=== PATIENT | female | born 1955 | race Caucasian/White ===

== ENCOUNTER 2019-06-30 10:49 | Emergency (ER) | payer MEDICARE, BC ==
--- NOTE | 2019-06-30 10:55 | EDM.PDOC ---
ED HPI GENERAL MEDICAL PROBLEM - General Chief Complaint: General Stated Complaint: Confusion Time Seen by Provider: 06/30/19 10:49 Source of Information: Reports: Patient, Family (Sister), Old Records ([facility] chart/EMR), Other ([facility], friend) History Limitations: Reports: Altered Mental Status - History of Present Illness INITIAL COMMENTS - FREE TEXT/NARRATIVE: The patient was brought to the emergency room via private automobile by her sister for evaluation of sudden onset nonspecific confusion with repetitive speaking but no dysarthria with symptoms starting about 08:45 hours this morning and 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 She also did have some nonspecific 2/10 retrosternal chest tightness at about 04:00 hours with questionable borderline heart flutter brief in nature with patient admitting that she is under significant stress at work at this time. The patient denies any dizziness, orthostasis, orthopnea, diaphoresis, paresthesias, recent decreased exercise tolerance, or any other anginal-type symptoms. No recent history of abdominal pain, heartburn, nausea, diarrhea, melena, gross hematochezia, or any food intolerance, including fatty foods, etc.. She denies any gross hematuria, colic, or other UTI symptoms. The patient also denies any recent fever, cough, wheezing, dyspnea, etc.. No history of recent headaches, visual changes, diplopia, change in mental status, or other change in neurological status. She denies any specific pain or discomfort at this time. Onset: Today, Sudden, Unknown/Unsure Onset Date: 06/30/19 Onset Time: 08:45 Duration: Improving Location: Reports: Other (No pain) Severity: Moderate (Confusion) Improves with: Reports: None Worsens with: Reports: None Context: Reports: Other (As above). Denies: Sick Contact, Trauma Associated Symptoms: Reports: Confusion, Chest Pain. 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 Denies: Allergic Rhinitis, Glaucoma, Hard of Hearing, Macular Degeneration, Retinal Detachment, Sinusitis Other HEENT History: Patient does need reading glasses after cataract surgery as below. Cardiovascular History: Reports: Arrhythmia, High Cholesterol, Other (See Below) . Denies: Afib, Aneurysm, Blood Clots/VTE/DVT, CAD, Heart Murmur, Hypertension , IL, PVD, Syncope Other Cardiovascular History: Hyperlipidemia currently diet controlled. History of hypertension. Varicose veins. Complete right bundle branch block. Respiratory History: Reports: Intubation, Previous, Other (See Below). Denies: Asthma, Bronchitis, Recurrent, COPD, Intubation, Difficult, PE, Pneumonia, Recurrent, Pneumothorax, Sleep Apnea, TB Other Respiratory History: Occasional pleurisy. Gastrointestinal History: Reports: Colon Polyp, GERD, Other (See Below). Denies : Bowel Obstruction, Celiac Disease, Cholelithiasis, Chronic Constipation, Chronic Diarrhea, Fecal Incontinence, GI Bleed, Inflammatory Bowel Disease, Irritable Bowel Syndrome, Jaundice, PUD Other Gastrointestinal History: Excision of tubular adenoma from the cecum and hyperplastic colonic polyp from the ascending colon on 01/15/17 by colonoscopy as below. Recurrent colonic polyps with previous history of CEA elevation. Benign hepatic cysts by CT scan. Genitourinary History: Reports: Chronic Renal Insuffiency, Urinary Incontinence , Other (See Below). 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 Urosepsis secondary to pyelonephritis. COMPUTATOR History: Reports: Dysfunctional Uterine Bleeding, Polycystic Ovaries, , Spontaneous . Denies: Endometriosis, Fibroids, Therapeutic : 3 LMP (Approximate): Other (See Below) Other COMPUTATOR History: Surgical menopause secondary to dysfunctional uterine bleeding as below multiple previous abnormal Pap smears without carcinoma or required procedures. SAB during first trimester with no D&C required. Hyperemesis gravidarum otherwise, Full term without complications during pregnancies or deliveries. Musculoskeletal History: Reports: Arthritis, Back Pain, Chronic, Neck Pain, Chronic, Osteoarthritis, Osteoporosis, Other (See Below). Denies: Amputation, Fracture, Gout, RA, SLE Other Musculoskeletal History: Mild kyphoscoliosis. Neurological History: Reports: None. Denies: Cerebral Aneurysms, Concussion, Headaches, Chronic, Head Trauma, Migraines, MS, Neuropathy, Peripheral, Parkinson's, Seizure, TIA, Vertigo Psychiatric History: Reports: Anxiety, Depression. Denies: Abuse, Victim of, ADD, ADHD, Addiction, Psych Hospitalization(s), PTSD, Suicide Attempt, Suicidal Ideation Endocrine/Metabolic History: Reports: Osteopenia, Osteoporosis. Denies: Diabetes, Gestational, Diabetes, Type I, Diabetes, Type II, Diabetes Mellitus, Type 3c, Hypothyroidism, IDDM, Obesity/BMI 30+ Hematologic History: Reports: Anemia, Iron Deficiency, Other (See Below). Denies: Blood Transfusion(s) Other Hematologic History: Iron deficiency anemia secondary to dysfunctional uterine bleeding resolved at this time. Immunologic History: Reports: None. Denies: AIDS, HIV, SLE Oncologic (Cancer) History: Reports: Cervix, Other (See Below). Denies: Basal Cell Carcinoma, Breast, Hodgkin's Lymphoma, Leukemia, Lymphoma, Malignant Melanoma, Non-Hodgkin's Lymphoma, Ovarian, Squamous Cell Carcinoma, Uterine Other Oncologic History: Multiple abnormal Pap smears as above however not precancerous Dermatologic History: Reports: None. Denies: Eczema, Psoriasis - Infectious Disease History Infectious Disease History: Reports: Chicken Pox, Measles, Mumps. Denies: C- Difficile, Meningitis, Mononucleosis, MRSA, Pertussis (Whooping Cough), Rheumatic Fever, Rubella, Scarlet Fever, Shingles, TB, VRE - Past Surgical History Head Surgeries/Procedures: Reports: None HEENT Surgical History: Reports: Adenoidectomy, Cataract Surgery, Naso-Sinus Surgery, Oral Surgery, Tonsillectomy, Other (See Below). Denies: Eye Surgery, Laser Surgery, LASIK, Myringotomy w Tube(s) Other HEENT Surgeries/Procedures: Tonsillectomy and adenoidectomy at about age 8. Nasal septum repair on 02/17/18. [place] teeth extraction 4 as a teenager. Bilateral cataract extraction in April and May 2019. Cardiovascular Surgical History: Reports: None. Denies: Varicose Respiratory Surgical History: Reports: None. Denies: Thoracentesis GI Surgical History: Reports: Colonoscopy, EGD, Polypectomy, Other (See Below). Denies: Appendectomy, Cholecystectomy, Hernia, Abdominal, Hernia, Inguinal, Hernia Repair/Other Other GI Surgeries/Procedures: EGD and colonoscopy on 01/15/17 with polypectomies as above. Previous colonoscopy in April 2011. Female Surgical History: Reports: Hysterectomy, Nephrectomy, Other (See Below ). 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 Partial hysterectomy in December 2009 secondary to dysfunctional uterine bleeding as above. Bladder suspension on 09/01/12 with subsequent mesh removal on 09/18/12. Endocrine Surgical History: Reports: None. Denies: Thyroid Biopsy Neurological Surgical History: Reports: None. Denies: C-Spine, Discectomy, Laminectomy, Lumbar Spine, Sacral Spine, Spinal Fusion, Thoracic Spine, Vertebroplasty Musculoskeletal Surgical History: Reports: None. Denies: Arthroscopic Procedure , Carpal Tunnel, Ganglion Cyst, Joint Replacement, ORIF, Shoulder Surgery Oncologic Surgical History: Reports: None Dermatological Surgical History: Reports: Other (See Below) Other Dermatological Surgeries/Procedures: Multiple benign skin lesion excisions. - Past Imaging History Past Imaging History: Reports: DEXA Scan (10/17/17.), Mammogram (Last mammogram on 03/30/19.), Stress Testing (Negative Cardiolite stress test on 07/11/03.), Ultrasound (Abdominal ultrasound on 05/11/16. Pelvic ultrasound on 01/03/09.) Social & Family History - Tobacco Use Smoking Status *Q: Never Smoker Tobacco Use Within Last Twelve Months: No Used Tobacco, but Quit: No Smoking Cessation Information Provided To Patient: No Second Hand Smoke Exposure: No Second Hand Smoke Education Provided: No - Caffeine Use Caffeine Use: Reports: Coffee (3 cups per day), Soda (With mixed drinks), Tea ( 2 glasses per week.). Denies: Energy Drinks - Alcohol Use Alcohol Use History: Yes Days Per Week of Alcohol Use: 1 Number of Drinks Per Day: 1 Number of Drinks Per Day Comment: Usually beer or mixed drink. No previous DWIs , problems with alcohol abuse, etc. 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 ED EXAM, GENERAL - Physical Exam Exam: See Below Exam Limited By: No Limitations General Appearance: Alert, WD/WN, No Apparent Distress, Anxious (Moderate) Eye Exam: Bilateral Eye: EOMI, Normal Fundi, Normal Inspection (No nystagmus), PERRL Ears: Normal External Exam, Normal Canal, Hearing Grossly Normal, Normal TMs Nose: Normal Inspection, Normal Mucosa, No Blood Throat/Mouth: Normal Inspection, Normal Lips, Normal Teeth, Normal Gums, Normal Oropharynx, Normal Voice, No Airway Compromise. No: Dysphagia, Perioral Cyanosis Head: Atraumatic, Normocephalic. No: Facial Swelling, Facial Tenderness, Sinus Tenderness Neck: Normal Inspection, Supple, Non-Tender, Full Range of Motion. No: Carotid Bruit, Lymphadenopathy (L), Lymphadenopathy (R), Thyromegaly Respiratory/Chest: No Respiratory Distress, Lungs Clear, Normal Breath Sounds, No Accessory Muscle Use, Chest Non-Tender. No: Pleural Rub, Retractions Cardiovascular: Normal Peripheral Pulses, Regular Rate, Rhythm, No Edema, No Gallop, No JVD, No Murmur, No Rub. No: Gallop/S3, Gallop/S4, Friction Rub Peripheral Pulses: 2+: Radial (L), Radial (R), Dorsalis Pedis (L), Dorsalis Pedis (R) GI/Abdominal: Normal Bowel Sounds, Soft, Non-Tender, No Organomegaly, No Distention, No Abnormal Bruit, No Mass, Pelvis Stable. No: Guarding (Female) Exam: Deferred Rectal (Female) Exam: Deferred Back Exam: Full Range of Motion, Other (Mild kyphoscoliosis). No: CVA Tenderness (L), CVA Tenderness (R), Muscle Spasm, Paraspinal Tenderness, Vertebral Tenderness Extremities: Normal Inspection, Normal Range of Motion, Non-Tender, No Pedal Edema, Normal Capillary Refill. No: Arsen's Sign Neurological: Alert, Oriented, CN II-XII Intact, Normal Cognition, Normal Gait, Normal Reflexes (Negative Babinski's, finger to nose, and pronator rotation tests. No evidence of facial paresis, tongue deviation, orthostasis, etc.. Excellent reverse thought processes.), No Motor/Sensory Deficits, Other (Some logorhrea with persistent term memory loss and forgetfulness with repetitive sentences and questions with no dysarthria, word substitution, etc.) Psychiatric: Anxious (Moderate), Depressed Mood (Borderline) Skin Exam: Warm, Dry, Intact, Normal Color, No Rash. No: Diaphoretic, Ecchymosis, Wound/Incision Lymphatic: No Adenopathy EKG INTERPRETATION EKG Date: 06/30/19 Time: 11:17 Rhythm: NSR Rate (Beats/Min): 88 [place]: Normal (Neutral cardiac axis) P-Wave: Enlarged (Moderate diffuse biphasic P waves) QRS: RBBB (There are 0.12 seconds representing a complete right bundle branch block with stable T-wave inversion in leads V1 and V2.) ST-T: Other (As above) QT: Normal SD/PQ Interval: 0.16 seconds with no delta waves noted. Poor R-wave progression in the anterior leads Comparison: No Change (Last EKG at time of Cardiolite stress test on 07/11/03) EKG Interpretation Comments: 1. Questionable anterior wall cardiac ischemia 2. Complete right bundle branch block 3. Left atrial enlargement Course - Vital Signs Last Recorded V/S: Last Vital Signs Temp 36.8 C 06/30/19 10:55 Pulse 81 06/30/19 12:15 Resp 16 06/30/19 12:15 BP 146/84 H 06/30/19 12:15 Pulse Ox 100 06/30/19 12:15 Vital Signs - 24 hr 06/30/19 06/30/19 06/30/19 10:55 11:10 11:25 Temperature [ 36.8 C Temporal] Pulse, 94 84 79 Peripheral [ Pulse Oximetry] Respiratory 18 19 18 Rate Blood Pressure 165/75 H 136/73 155/75 H [Left Upper Arm ] O2 Sat by Pulse 96 98 98 Oximetry 06/30/19 06/30/19 06/30/19 11:43 12:00 12:15 Temperature [ Temporal] Pulse, 85 72 81 Peripheral [ Pulse Oximetry] Respiratory 19 15 16 Rate Blood Pressure 147/70 H 131/65 146/64 H [Left Upper Arm ] O2 Sat by Pulse 100 96 100 Oximetry - Orders/Labs/Meds Orders: Active Orders 24 hr Category Date Time Status Blood Glucose Check, Bedside [RC] STAT Care 06/30/19 10:56 Active Cardiac Monitoring [RC] STAT Care 06/30/19 10:56 Active EKG Documentation Completion [RC] ASDIRECTED Care 06/30/19 10:56 Active NIH Stroke Scale [RC] ASDIRECTED Care 06/30/19 10:56 Active Oxygen Therapy, ED [RC] CONTINUOUS Care 06/30/19 10:56 Active Peripheral IV Care [RC] . DIRECTED Care 06/30/19 10:56 Active Pulse Oximetry [RC] CONTINUOUS Care 06/30/19 10:56 Active Up With Assistance [RC] ASDIRECTED Care 06/30/19 10:56 Active Vital Signs [RC] PFP Care 06/30/19 10:56 Active Nothing per Oral Now Diet [DIET] Diet 06/30/19 Breakfast Active Chest 1V Frontal [CR] Stat Exams 06/30/19 10:56 Taken Head wo Cont [CT] Stat Exams 06/30/19 10:56 Taken PROLACTIN [REF] Stat Lab 06/30/19 10:58 Received Sodium Chloride 0.9% [Saline Flush] Med 06/30/19 10:56 Active 10 ml FLUSH ASDIRECTED PRN Obtain Past Medical Record [OM.PC] Stat Oth 06/30/19 10:56 Active Peripheral IV Insertion Adult [OM.PC] Stat Oth 06/30/19 10:56 Ordered Resuscitation Status Stat Resus Stat 06/30/19 10:56 Ordered Medication Orders Sodium Chloride (Saline Flush) 10 ml FLUSH ASDIRECTED PRN PRN Reason: Keep Vein Open Labs: Laboratory Tests 06/30/19 06/30/19 06/30/19 Range/Units 10:56 10:56 10:58 WBC 6.4 (4.0-10.2) K/uL RBC 5.16 H (3.77-5.09) M/uL Hgb 15.1 (11.7-15.5) g/dL Hct 45.4 (34.0-46.0) % MCV 88.0 (84.0-98.0) fL MCH 29.3 (28.2-33.3) pg MCHC 33.3 (31.7-36.0) g/dL RDW 12.9 (11.2-14.1) % Plt Count 267 (150-350) K/uL Neut % (Auto) 70.1 (45.0-80.0) % Lymph % (Auto) 19.7 (10.0-50.0) % [place] % (Auto) 9.0 (2.0-14.0) % Eos % (Auto) 0.9 (0.0-5.0) % Baso % (Auto) 0.3 (0.0-2.0) % Neut # (Auto) 4.51 (1.40-7.00) K/uL Lymph # (Auto) 1.27 (0.50-3.50) K/uL [place] # (Auto) 0.58 (0.00-1.00) K/uL Eos # (Auto) 0.06 (0.00-0.50) K/uL Baso # (Auto) 0.02 (0.00-0.20) K/uL PT 12.9 H (9.5-12.0) SEC INR 1.2 APTT 25.7 (21.0-31.3) SEC D-Dimer, Quantitative 219 (0-400) ng/mL Sodium (136-145) mmol/L Potassium (3.5-5.1) mmol/L Chloride (98-107) mmol/L Carbon Dioxide (21.0-32.0) mmol/L BUN (7-18) mg/dL Creatinine (0.51-1.17) mg/dL Est Cr Clr Drug Dosing mL/min Estimated GFR (MDRD) mL/min Glucose (74-106) mg/dL Lactic Acid (0.4-2.0) mmol/L Uric Acid (2.6-7.2) mg/dL Calcium (8.5-10.1) mg/dL Magnesium (1.8-2.4) mg/dL Total Bilirubin (0.2-1.0) mg/dL AST (15-37) U/L ALT (12-78) U/L Alkaline Phosphatase (46-116) IU/L Creatine Kinase (26-308) U/L Creatine Kinase Index (0.0-2.5) % CK-MB (CK-2) (0.00-3.60) ng/mL Troponin I (0.000-0.056) ng/mL NT-Pro-B Natriuret Pep (0-125) pg/mL Total Protein (6.4-8.2) g/dL Albumin (3.4-5.0) g/dL TSH, Ultra Sensitive (0.358-3.740) mIU/mL Specimen Type Urine Color Urine Appearance Urine pH (5.0-9.0) Ur Specific [place] (1.005-1.030) Urine Protein (NEGATIVE) mg/dL Urine Glucose (UA) (NEGATIVE) mg/dL Urine Ketones (NEGATIVE) mg/dL Urine Occult Blood (NEGATIVE) Urine Nitrite (NEGATIVE) Urine Bilirubin (NEGATIVE) Urine Urobilinogen (0.2-1.0) E.U./dL Ur Leukocyte Esterase (NEGATIVE) Urine RBC /HPF Urine WBC /HPF Ur Epithelial Cells /LPF Urine Bacteria (NONE TO FEW) /HPF 06/30/19 06/30/19 06/30/19 Range/Units 10:58 10:58 11:40 WBC (4.0-10.2) K/uL RBC (3.77-5.09) M/uL Hgb (11.7-15.5) g/dL Hct (34.0-46.0) % MCV (84.0-98.0) fL MCH (28.2-33.3) pg MCHC (31.7-36.0) g/dL RDW (11.2-14.1) % Plt Count (150-350) K/uL Neut % (Auto) (45.0-80.0) % Lymph % (Auto) (10.0-50.0) % [place] % (Auto) (2.0-14.0) % Eos % (Auto) (0.0-5.0) % Baso % (Auto) (0.0-2.0) % Neut # (Auto) (1.40-7.00) K/uL Lymph # (Auto) (0.50-3.50) K/uL [place] # (Auto) (0.00-1.00) K/uL Eos # (Auto) (0.00-0.50) K/uL Baso # (Auto) (0.00-0.20) K/uL PT (9.5-12.0) SEC INR APTT (21.0-31.3) SEC D-Dimer, Quantitative (0-400) ng/mL Sodium 142 (136-145) mmol/L Potassium 3.9 (3.5-5.1) mmol/L Chloride 104 (98-107) mmol/L Carbon Dioxide 27.7 (21.0-32.0) mmol/L BUN 17 (7-18) mg/dL Creatinine 1.18 H (0.51-1.17) mg/dL Est Cr Clr Drug Dosing 43.90 mL/min Estimated GFR (MDRD) 46 mL/min Glucose 111 H (74-106) mg/dL Lactic Acid 0.8 (0.4-2.0) mmol/L Uric Acid 4.4 (2.6-7.2) mg/dL Calcium 9.4 (8.5-10.1) mg/dL Magnesium 1.9 (1.8-2.4) mg/dL Total Bilirubin 0.7 (0.2-1.0) mg/dL AST 20 (15-37) U/L ALT 23 (12-78) U/L Alkaline Phosphatase 57 (46-116) IU/L Creatine Kinase 82 (26-308) U/L Creatine Kinase Index 0.9 (0.0-2.5) % CK-MB (CK-2) 0.70 (0.00-3.60) ng/mL Troponin I 0.000 (0.000-0.056) ng/mL NT-Pro-B Natriuret Pep 159 H (0-125) pg/mL Total Protein 7.8 (6.4-8.2) g/dL Albumin 4.1 (3.4-5.0) g/dL TSH, Ultra Sensitive 1.695 (0.358-3.740) mIU/mL Specimen Type Urinqcath Urine Color Yellow Urine Appearance Clear Urine pH 6.0 (5.0-9.0) Ur Specific [place] 1.020 (1.005-1.030) Urine Protein Negative (NEGATIVE) mg/dL Urine Glucose (UA) Negative (NEGATIVE) mg/dL Urine Ketones Negative (NEGATIVE) mg/dL Urine Occult Blood Negative (NEGATIVE) Urine Nitrite Negative (NEGATIVE) Urine Bilirubin Negative (NEGATIVE) Urine Urobilinogen 0.2 (0.2-1.0) E.U./dL Ur Leukocyte Esterase Trace H (NEGATIVE) Urine RBC Not seen /HPF Urine WBC 0-5 /HPF Ur Epithelial Cells Rare /LPF Urine Bacteria Not seen (NONE TO FEW) /HPF Meds: Medications Generic Name Dose Route Start Last Admin Trade Name Freq PRN Reason Stop Dose Admin Sodium Chloride 10 ml 06/30/19 10:56 Saline Flush FLUSH ASDIRECTED PRN Keep Vein Open Discontinued Medications Generic Name Dose Route Start Last Admin Trade Name Freq PRN Reason Stop Dose Admin Aspirin 324 mg 06/30/19 12:04 06/30/19 12:20 Aspirin CHEW 06/30/19 12:05 324 mg ONETIME ONE Administration Famotidine 40 mg 06/30/19 10:56 06/30/19 12:20 Pepcid IVPUSH 06/30/19 10:57 40 mg ONETIME ONE Administration - Radiology Interpretation Free Text/Narrative:: manager monitoring showed normal sinus rhythm with heart rate in the 70s to 90s with no ectopy or arrhythmia. Chest x-ray, portable, shows mild to moderate aortic valve calcification with no cardiomegaly, CHF, pulmonary infiltrates, pneumothorax, etc. Mild kyphoscoliosis with moderate osteoarthritic and osteoporotic changes present. Telephone consultation at 11:30 a.m. this morning with the radiology department at [facility]. Preliminary verbal report of noncontrast CT scan of the head shows no evidence of acute CVA, hemorrhagic bleeding, etc. Stable likely chronic anterior midline dura calcification. CT Results Date: 06/30/19 CT Results Time: 11: Departure - Departure Time of Disposition: 12:40 Disposition: DC/Tfer to Acute Hospital 02 Condition: Good Clinical Impression: Elevated blood pressure reading, Complete right bundle branch block (RBBB), Peptic reflux disease, Renal insufficiency, Mixed anxiety and depressive disorder CVA (cerebral vascular accident) Qualifiers: CVA mechanism: unspecified Qualified Code(s): I63.9 - Cerebral infarction, unspecified Hyperlipidemia Qualifiers: Hyperlipidemia type: mixed hyperlipidemia Qualified Code(s): E78.2 - Mixed hyperlipidemia Osteoarthritis Qualifiers: Osteoarthritis location: multiple joints Osteoarthritis type: primary Qualified Code(s): M15.0 - Primary generalized (osteo)arthritis Chest pain Qualifiers: Chest pain type: other chest pain Qualified Code(s): R07.89 - Other chest pain ; R07.8 - Other chest pain - Discharge Information *PRESCRIPTION DRUG MONITORING PROGRAM REVIEWED*: Not Applicable *COPY OF PRESCRIPTION DRUG MONITORING REPORT IN PATIENT JUANY: Not Applicable Referrals: Josse-Evelyn Nino MD [Primary Care Provider] - Forms: ED Department Discharge, Interfacility Transfer EMTALA - Problem List & Annotations (1) CVA (cerebral vascular accident) SNOMED Code(s): 916512910 Code(s): I63.9 - CEREBRAL INFARCTION, UNSPECIFIED Status: Acute Priority : High Current Visit: Yes Onset Date: 06/30/19 Annotation/Comment:: Secondary to clinical presentation and history a stroke code was called by this provider upon patient's arrival to this facility. Note NIH scale was 0 on arrival with completely normal neurological exam with exception of some short- term memory loss/forgetfulness, mild logorrhea, and repeated sentences throughout her emergency room care. Telephone consultation at 11:[address] Bazan, neurologist at [facility], who does accept the patient for further neurological evaluation, including probable MRI of the brain , etc.. The patient will be initially evaluated in the emergency room, and she agrees to notify the emergency room physician for me concerning patient transfer. Dr. Bazan also agrees with administration of 4 baby aspirin chew and swallow, with no further treatment recommendations given. Vital signs, neurological exam, etc. were completely stable at time of transfer. Qualifiers: CVA mechanism: unspecified Qualified Code(s): I63.9 - Cerebral infarction, unspecified (2) Chest pain SNOMED Code(s): 23854412 Code(s): R07.9 - CHEST PAIN, UNSPECIFIED Status: Acute Priority: High Current Visit: Yes Onset Date: 06/30/19 Annotation/Comment:: Chest pain protocol was not initiated upon patient's arrival to the emergency room secondary to her neurological symptoms as above. Patient did receive subsequent ASA, however, as above. She did not have any chest pain at time of arrival or during her emergency room care. Cardiac enzymes are normal with stable borderline anterior wall changes but no direct evidence of acute IL. Consider cardiology consultation depending on her clinical course. Qualifiers: Chest pain type: other chest pain Qualified Code(s): R07.89 - Other chest pain; R07.8 - Other chest pain (3) Complete right bundle branch block (RBBB) SNOMED Code(s): 584204291 Code(s): I45.10 - UNSPECIFIED RIGHT BUNDLE-BRANCH BLOCK Status: Chronic Priority: Medium Current Visit: Yes Annotation/Comment:: Stable as above (4) Elevated blood pressure reading SNOMED Code(s): 95402846 Code(s): R03.0 - ELEVATED BLOOD-PRESSURE READING, W/O DIAGNOSIS OF HTN Status: Acute Priority: High Current Visit: Yes Onset Date: 06/30/19 Annotation/Comment:: Elevated blood pressure on arrival, however significantly improved prior to discharge without any medical therapy required. Anxiety component present. Note previous history of chronic nonsymptomatic hypotension. (5) Hyperlipidemia SNOMED Code(s): 00911893 Code(s): E78.5 - HYPERLIPIDEMIA, UNSPECIFIED Status: Chronic Priority: Medium Current Visit: Yes Annotation/Comment:: Currently diet controlled. Qualifiers: Hyperlipidemia type: mixed hyperlipidemia Qualified Code(s): E78.2 - Mixed hyperlipidemia (6) Osteoarthritis SNOMED Code(s): 103464955 Code(s): M19.90 - UNSPECIFIED OSTEOARTHRITIS, UNSPECIFIED SITE Status: Chronic Priority: Medium Current Visit: Yes Annotation/Comment:: Stable by history Qualifiers: Osteoarthritis location: multiple joints Osteoarthritis type: primary Qualified Code(s): M15.0 - Primary generalized (osteo)arthritis (7) Peptic reflux disease SNOMED Code(s): 202990012 Code(s): K21.9 - GASTRO-ESOPHAGEAL REFLUX DISEASE WITHOUT ESOPHAGITIS Status: Chronic Priority: Medium Current Visit: Yes Annotation/Comment:: Not recently problematic. High-dose IV Pepcid given as GI prophylaxis. 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 (9) Mixed anxiety and depressive disorder SNOMED Code(s): 238260265 Code(s): F41.8 - OTHER SPECIFIED ANXIETY DISORDERS Status: Chronic Priority: Medium Current Visit: Yes Annotation/Comment:: Moderate control based on today's evaluation. 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 Per history from her family she only gets about 3 hours of sleep per night despite going to bed at 9 PM and often forgets to eat, drink, etc. Emotional support was provided. Lifestyle changes encouraged. Continue to observe closely by her regular providers. - Problem List Review Problem List Initiated/Reviewed/Updated: Yes - My Orders Last 24 Hours: My Active Orders 06/30/19 10:56 Blood Glucose Check, Bedside [RC] STAT Cardiac Monitoring [RC] STAT EKG Documentation Completion [RC] ASDIRECTED NIH Stroke Scale [RC] ASDIRECTED Oxygen Therapy, ED [RC] CONTINUOUS Peripheral IV Care [RC] . DIRECTED Pulse Oximetry [RC] CONTINUOUS Up With Assistance [RC] ASDIRECTED Vital Signs [RC] PFP Chest 1V Frontal [CR] Stat Head wo Cont [CT] Stat Sodium Chloride 0.9% [Saline Flush] 10 ml FLUSH ASDIRECTED PRN Obtain Past Medical Record [OM.PC] Stat Peripheral IV Insertion Adult [OM.PC] Stat Resuscitation Status Stat 06/30/19 10:58 PROLACTIN [REF] Stat 06/30/19 Breakfast Nothing per Oral Now Diet [DIET] - Assessment/Plan Last 24 Hours: My Active Orders 06/30/19 10:56 Blood Glucose Check, Bedside [RC] STAT Cardiac Monitoring [RC] STAT EKG Documentation Completion [RC] ASDIRECTED NIH Stroke Scale [RC] ASDIRECTED Oxygen Therapy, ED [RC] CONTINUOUS Peripheral IV Care [RC] . DIRECTED Pulse Oximetry [RC] CONTINUOUS Up With Assistance [RC] ASDIRECTED Vital Signs [RC] PFP Chest 1V Frontal [CR] Stat Head wo Cont [CT] Stat Sodium Chloride 0.9% [Saline Flush] 10 ml FLUSH ASDIRECTED PRN Obtain Past Medical Record [OM.PC] Stat Peripheral IV Insertion Adult [OM.PC] Stat Resuscitation Status Stat 06/30/19 10:58 PROLACTIN [REF] Stat 06/30/19 Breakfast Nothing per Oral Now Diet [DIET] Assessment:: As above Plan: As above. Extensive precautions were given to the patient and her family, who are in agreement with the treatment plan. Ambulance transfer to [place] with water conservation specialist accompaniment.
[2019-06-30] MEDS ORDERED: Sodium Chloride 0.9% 10 ML Syringe FLUSH PRN (10:56)
[2019-06-30] MEDS ORDERED: Famotidine 20 MG/2 ML SDV IVPUSH ONE (10:56)
[2019-06-30] MEDS ORDERED: Aspirin 81 MG Tab.Chew CHEW ONE (12:04)
[2019-06-30 12:19] VITALS: PULSE 81
[2019-06-30 12:49] VITALS: BP 146/64
== END 2019-06-30 12:34 ==
LOC: LL.ED 10:49
DX: I45.10 Unspecified right bundle-branch block (principal); K21.9 Gastro-esophageal reflux disease without esophagitis; N28.9 Disorder of kidney and ureter, unspecified; F41.8 Other specified anxiety disorders; I63.9 Cerebral infarction, unspecified; E78.2 Mixed hyperlipidemia; R03.0 Elevated blood-pressure reading, without diagnosis of hypertension; M15.0 Primary generalized (osteo)arthritis; Z79.899 Other long term (current) drug therapy
CPT/HCPCS: 36415; 70450; 71045; 80053; 81001; 82550; 82553; 83605; 83735; 83880; 84146; 84443; 84484; 84550; 85025; 85379; 85610; 85730; 93005; 96374; 99285-25; A9270-GY; J3490